=== PATIENT | male | born 1945 | race Caucasian/White ===

== ENCOUNTER 2016-10-09 20:45 | Outpatient (CLI) | payer MEDICARE ==
[~2016-10-09 20:45] MED LIST: IBP800T PO
== END 2016-10-10 06:45 | disposition home or self-care (01) ==
LOC: SLEEP 20:45
PROVIDERS: ATTEND Nurse Practitioner Family
DX: G47.33 Obstructive sleep apnea (adult) (pediatric) (principal); G47.10 Hypersomnia, unspecified; G47.61 Periodic limb movement disorder
CPT/HCPCS: 95811

== ENCOUNTER → 2019-10-19 | Outpatient (CLI) | payer MEDICARE ==
[~2019-10-19] MED LIST changes: +GADOBUTROL 10 MMOL/10 ML (GADAVIST) VIAL IV ONE
--- NOTE | 2019-10-19 10:24 | Diagnostic Imaging Report ---
CLINICAL INDICATION: Patient has low back pain with two previous lumbar spine surgeries in 2005 and 2013. Increasing problems with left leg numbness and pain. EXAM: MRI of the lumbar spine performed without and with 8 cc of Gadavist contrast IV contrast. Sagittal T2, sagittal T1, sagittal T2 fat-sat, axial T1, axial T2, sagittal T1 fat-sat post IV contrast, and axial T1 post IV contrast. COMPARISON: None. FINDINGS: There are postop changes to the lower lumbar spine with L3 and L4 laminectomies. There is enhancement and increased T2 signal involving the L2-L3 endplate region related to Modic type I degenerative signal changes. There are Modic type II degenerative signal changes involving the L4-L5 endplates. Besides the postop changes, there is no other significant abnormality. There are hypertrophic spurs and facet arthropathy seen throughout the lumbar spine. The visualized portions of the distal thoracic spinal cord, conus medullaris, and cauda equina nerve roots are unremarkable. The conus medullaris tip is seen at the L1-L2 intervertebral level. T12-L1: There is mild to moderate bilateral facet arthropathy. There is no significant posterior disc bulge. There is no significant central spinal canal or neuroforaminal narrowing. L1-L2: There is moderate bilateral facet arthropathy. There is no significant central spinal canal or neuroforaminal narrowing. There is no significant disc bulge. L2-L3: There is a diffuse disc bulge with a small annular tear posteriorly. There is moderate loss of disc space height with endplate irregularity. There are disc spurs extending posteriorly and into the foraminal regions bilaterally. There is moderate to severe bilateral neuroforaminal narrowing and moderate central canal stenosis. L3-L4: There is a diffuse disc bulge with moderate loss of disc space height. There are disc spurs extending posteriorly and into the foraminal regions. There is severe bilateral facet arthropathy/hypertrophy. There is decompression of the thecal sac posteriorly with mild central canal narrowing. There is severe bilateral neuroforaminal narrowing. L4-L5: There is grade 1 retrolisthesis of L4 on L5. There is a diffuse disc bulge with moderate to severe loss of disc space height, endplate irregularity, and moderate bilateral facet arthropathy. There is decompression of the thecal sac posteriorly with no significant central canal narrowing. There is severe bilateral neuroforaminal narrowing. L5-S1: There is a diffuse disc bulge with mild to moderate loss of disc space height posteriorly. There are disc spurs extending posteriorly and into the foraminal regions bilaterally. There is severe bilateral neuroforaminal narrowing. There is mild central canal stenosis. IMPRESSION: 1. There are postop changes of the lower lumbar spine with L4 and L5 laminectomies. There is no significant abnormal IV contrast enhancement. There is no paraspinal fluid collection. 2. There is severe multilevel lumbar spine degenerative disease with diffuse disc bulges, disc spurs, and facet arthropathy which is described in detail above. 3. There is grade 1 retrolisthesis of L4 on L5. Dictated by: Dictated on workstation # [id number]
== END ==
LOC: RAD 07:04
PROVIDERS: ATTEND Psychiatry & Neurology Neurology
DX: Z01.812 Encounter for preprocedural laboratory examination (principal); G62.9 Polyneuropathy, unspecified; M48.07 Spinal stenosis, lumbosacral region; M51.27 Other intervertebral disc displacement, lumbosacral region; M47.816 Spondylosis without myelopathy or radiculopathy, lumbar region; M46.06 Spinal enthesopathy, lumbar region
CPT/HCPCS: 72158

== ENCOUNTER → 2020-11-16 | Outpatient (CLI) | payer MEDICARE ==
[~2020-11-16] VITALS: Ht 170 cm; Wt 83.0 kg
[~2020-11-16] MED LIST changes: +CATHETER FLUSH 10 ML SYR IV PRN; -GADOBUTROL 10 MMOL/10 ML (GADAVIST) VIAL IV ONE
[2020-11-16 08:08] VITALS: BP 128/68
[2020-11-16 08:18] VITALS: BP 116/72
--- NOTE | 2020-11-16 12:53 | Cardiology Stress Test Report ---
Stress Test Report Date of Procedure/Referring: Date of Procedure: Nov 16, 2020 PCP Bina Sotelo DO Admitting Physician Bina Sotelo DO Indications: Fatigue Baseline Vital Signs Vital Signs Date Time Temp Pulse Resp B/P (MAP) Pulse Ox O2 Delivery O2 Flow Rate FiO2 11/16/20 08:08 63 17 128/68 (88) 99 Summary: Patient receive a resting and stress dose of Myoview, images were acquired and reviewed in the short axis view, horizontal long axis view and vertical long axis view. TID: 1.19 SSS: 4 SDS: 4 EF: 54 1. Mild decrease uptake involving the base of the anterior wall and base of the inferior wall, probably extracardiac attenuation. No significant ischemia or infarction on SPECT images 2. Normal left ventricular size, EF 54% Copy Copies To 1: BINA SOTELO BASHAR J MD Nov 16, 2020 12:53
== END ==
LOC: CARD 07:00
PROVIDERS: ATTEND Internal Medicine
DX: R53.83 Other fatigue (principal)
CPT/HCPCS: 78452; 93017; A9502

== ENCOUNTER → 2022-10-22 | Outpatient (CLI) | payer MEDICARE ==
[~2022-10-22] MED LIST changes: -CATHETER FLUSH 10 ML SYR IV PRN
--- NOTE | 2022-10-22 12:56 | Diagnostic Imaging Report ---
INDICATION: Lower back pain with paresthesias. COMPARISON: None FINDINGS: Multiple frontal and lateral radiograph views of the lumbar spine were obtained. Flexion and extension views in lateral projection are also provided. Evaluation static alignment shows slight grade 1 retrolisthesis at L1-L2 and slight grade 1 anterolisthesis L4-L5. This persists with flexion and extension. There is no abnormal translation. There is no evidence of jumped facets. Vertebral body heights are maintained. There is no acute fracture. There are advanced multilevel degenerative changes consistent with intervertebral disc height loss with large anterior and posterior endplate osteophyte formations as well as multilevel facet arthropathy. IMPRESSION: 1. Advanced multilevel degenerative changes of the lumbar spine. 2. No acute fracture or dislocation. Dictated by: Dictated on workstation # [id number]
== END ==
LOC: RAD 10:30
PROVIDERS: ATTEND Registered Nurse
DX: M47.816 Spondylosis without myelopathy or radiculopathy, lumbar region (principal)
CPT/HCPCS: 72110